=== PATIENT | female | born 1980 | race Caucasian/White ===

== ENCOUNTER 2018-08-19 23:39 | Emergency (ER) | payer OTHER ==
[2018-08-20 00:08] VITALS: RESP 20
[2018-08-20] MEDS ORDERED: diphenhydrAMINE 50 MG/ML 1 ML VIAL IVP STA (00:44)
[2018-08-20] MEDS ORDERED: METOCLOPRAMIDE 5 MG/ML 2 ML VIAL IVP STA (00:44)
[2018-08-20] MEDS ORDERED: KETOROLAC 30 MG/ML 1 ML VIAL IVP STA (00:44)
[2018-08-20] MEDS ORDERED: SODIUM CHLORIDE 0.9% 1,000 ML IV ONE (00:44)
[2018-08-20] MEDS: guaiFENesin-DM 600/30MG 1 EACH TAB.ER.12H PO STA ×2 (01:01→01:06)
--- NOTE | 2018-08-20 02:43 | ED ---
URI HPI - General Chief Complaint: Upper Respiratory Infection Stated Complaint: URI, Headache, body pain Time Seen by Provider: 08/20/18 00:27 Source: patient Mode of arrival: ambulatory Limitations: no limitations - History of Present Illness Initial Comments: 37-year-old female patient presents to the emergency department today for evaluation of upper respiratory symptoms and migraine headache. Patient states last 2 days she has been sick with nasal congestion, nasal drainage, and cough. Patient states she is having pressure in her ears with this as well. States that she has had temperature as high as 10 1F at home. States that earlier today she developed a migraine headache. Patient states that she does have a history of migraines her symptoms are consistent with her usual migraine pattern and include visual alterations, light and sound sensitivity, and nausea. Patient states she has had a couple episodes of vomiting today. Denies any abdominal pain, constipation, or diarrhea. Denies any numbness, tingling, weakness to his extremities. Patient denies any recent rash, shortness breath, chest pain, abdominal pain, back pain, numbness, tingling, dizziness, weakness, hematuria, dysuria, urinary urgency, urinary frequency, or any other complaints. - Related Data Previous Rx's Medication Instructions Recorded Hry-Kins-Wjsaq Acid 1 each PO DAILY #30 cap 05/26/15 [-U Capsule (formulary)] Albuterol Sulfate [Proair Hfa] 1 - 2 puff INHALATION Q6HR PRN #1 08/20/18 inhaler Azithromycin [Zithromax Z-pack] 0 mg PO DIRECTED #6 tab 08/20/18 guaiFENesin-DM 600/30MG [Mucinex 1 each PO Q12HR #10 tab.er.12h 08/20/18 Dm] Allergies Allergy/AdvReac Type Severity Reaction Status Date / Time aspirin Allergy Unknown Verified 07/03/15 22:46 Childhood celecoxib [From Celebrex] Allergy Unknown Verified 07/03/15 22:46 Penicillins Allergy Unknown Verified 07/03/15 22:46 Childhood sumatriptan [From Imitrex] Allergy Unknown Verified 07/03/15 22:46 sumatriptan succinate Allergy Unknown Verified 07/03/15 22:46 [From Imitrex] ibuprofen AdvReac Unknown Verified 07/03/15 22:46 Review of Systems ROS Statement: Those systems with pertinent positive or pertinent negative responses have been documented in the HPI. ROS Other: All systems not noted in ROS Statement are negative. Past Medical History Past Medical History: Asthma Additional Past Medical History / Comment(s): migraines, hypoglycemia History of Any Multi-Drug Resistant Organisms: None Reported Past Surgical History: Appendectomy Additional Past Surgical History / Comment(s): fallopian tube cyst removed per pt Past Psychological History: Anxiety, Bipolar, Depression, Panic Disorder Smoking Status: Current every day smoker Past Alcohol Use History: Rare Past Drug Use History: Marijuana General Exam Limitations: no limitations General appearance: alert, in no apparent distress, other (The well-developed, well-nourished adult female patient in no acute distress. Vital signs upon presentation are temperature 98.2F, pulse 117, respirations 20, blood pressure 121/85, pulse ox 98% on room air.) Eye exam: Present: normal appearance, PERRL, EOMI. Absent: scleral icterus, conjunctival injection, nystagmus, periorbital swelling ENT exam: Present: normal exam, normal oropharynx, mucous membranes moist, TM's normal bilaterally Respiratory exam: Present: normal lung sounds bilaterally. Absent: respiratory distress, wheezes, rales, rhonchi, stridor Cardiovascular Exam: Present: regular rate, normal rhythm, normal heart sounds. Absent: systolic murmur, diastolic murmur, rubs, gallop, clicks GI/Abdominal exam: Present: soft, normal bowel sounds. Absent: distended, tenderness, guarding, rebound, rigid Neurological exam: Present: alert, oriented X3, CN II-XII intact, other (Strength in all 4 cavities is 5/5.) Psychiatric exam: Present: normal affect, normal mood Skin exam: Present: warm, dry, intact, normal color. Absent: rash Course Vital Signs 08/20/18 08/20/18 00:04 03:21 Temperature 98.2 F 97.9 F Pulse Rate 117 H 81 Respiratory 20 20 Rate Blood Pressure 121/85 116/87 O2 Sat by Pulse 98 98 Oximetry Medical Decision Making - Medical Decision Making 37-year-old female patient presents to the emergency department today for evaluation of upper respiratory symptoms, cough, and migraine headache. Physical examination is unremarkable. Lungs are clear to auscultation with good air movement. Patient is neurologically intact with no focal deficits. She was influenza negative. Chest x-ray showed no acute cardio pulmonary process. Patient symptoms are consistent with viral upper respiratory infection. Patient was given prescription for azithromycin in case her symptoms do not start to improve over the next 3 days. She is also given a Pro Air inhaler she does have a history of asthma. She is given Mucinex DM for symptom relief. She is instructed to follow-up with her primary care physician for recheck in 1-2 days. Return parameters were discussed in detail. She verbalizes understanding and agrees with this plan. - Lab Data Lab Results 08/20/18 Range/Units 00:57 Influenza Type A RNA Not Detected (Not Detectd) Influenza Type B (PCR) Not Detected (Not Detectd) - Radiology Data Radiology results: report reviewed, image reviewed Two-view x-ray of the chest is obtained. Report was reviewed in its entirety. Impression by Dr. Quintanilla shows normal chest radiographs. Disposition Clinical Impression: Viral upper respiratory infection, Migraine Disposition: HOME SELF-CARE Condition: Good Instructions (If sedation given, give patient instructions): Migraine Headache (ED), Upper Respiratory Infection (ED) Additional Instructions: Increase fluids. Take medications as directed. Follow-up through primary care physician for recheck in 1-2 days. If symptoms do not start to improve in 3 days start the azithromycin/Z-Gene. Return to emergency department immediately for any new, worsening, or concerning symptoms. Prescriptions: guaiFENesin-DM 600/30MG [Mucinex Dm] 1 each PO Q12HR #10 tab.er.12h Albuterol Sulfate [Proair Hfa] 1 - 2 puff INHALATION Q6HR PRN #1 inhaler PRN Reason: Shortness Of Breath Azithromycin [Zithromax Z-pack] 0 mg PO DIRECTED #6 tab Is patient prescribed a controlled substance at d/c from ED?: No Referrals: None,Stated [Primary Care Provider] - 1-2 days Time of Disposition: 02:57
--- NOTE | 2018-08-20 02:48 | XR ---
EXAM: XR Chest, 2 Views CLINICAL HISTORY: Pain TECHNIQUE: Frontal and lateral views of the chest. COMPARISON: No relevant prior studies available. FINDINGS: Lungs: Unremarkable. No consolidation. Pleural space: No pleural effusion. No pneumothorax. Heart: Unremarkable. No cardiomegaly. Mediastinum: Unremarkable. Bones/joints: Unremarkable. IMPRESSION: Normal chest radiographs.
[2018-08-20 03:22] VITALS: BP 116/87; PULSE 81; TEMP 97.9
== END 2018-08-20 03:24 | disposition home or self-care (01) ==
LOC: EC 23:39
DX: J06.9 Acute upper respiratory infection, unspecified (principal); G43.909 Migraine, unspecified, not intractable, without status migrainosus; J45.909 Unspecified asthma, uncomplicated; F17.200 Nicotine dependence, unspecified, uncomplicated; Z88.0 Allergy status to penicillin; Z88.6 Allergy status to analgesic agent; Z88.8 Allergy status to other drugs, medicaments and biological substances; Z53.8 Procedure and treatment not carried out for other reasons
CPT/HCPCS: 87502; 71046; 99283; 96374; 96375; 96361 ×2; J1200; J2765

== ENCOUNTER 2019-07-31 17:00 | Emergency (ER) | payer OTHER ==
[2019-07-31 17:07] VITALS: BP 135/91; PULSE 84; RESP 18; TEMP 98.1
--- NOTE | 2019-07-31 17:29 | ED ---
ENT HPI - General Chief complaint: ENT Stated complaint: sorethroat Time Seen by Provider: 07/31/19 17:08 Source: patient Mode of arrival: ambulatory Limitations: no limitations - History of Present Illness Initial comments: Patient is a 38-year-old female with history of asthma presenting to emergency Department with chief complaint of a sore throat. Patient states symptoms began yesterday. Patient states she has an occasional cough but it is due to her smoking. Denies any fever and chills at home. Denies rhinorrhea or otalgia. Patient is concerned for strep throat. Denies swelling in the floor oral cavity or under the chin. Patient requesting albuterol inhaler and prednisone for when she develops asthma exacerbation. - Related Data Previous Rx's Medication Instructions Recorded Qpq-Yaon-Ozpre Acid 1 each PO DAILY #30 cap 05/26/15 [-U Capsule (formulary)] Albuterol Sulfate [Proair Hfa] 1 - 2 puff INHALATION Q6HR PRN #1 08/20/18 inhaler Azithromycin [Zithromax Z-pack] 0 mg PO DIRECTED #6 tab 08/20/18 guaiFENesin-DM 600/30MG [Mucinex 1 each PO Q12HR #10 tab.er.12h 08/20/18 Dm] Albuterol Inhaler [Ventolin Hfa 1 - 2 puff INHALATION RT-Q6H PRN 07/31/19 Inhaler] #1 inhaler predniSONE 50 mg PO DAILY #5 tab 07/31/19 Allergies Allergy/AdvReac Type Severity Reaction Status Date / Time aspirin Allergy Unknown Verified 07/31/19 17:07 Childhood celecoxib [From Celebrex] Allergy Unknown Verified 07/31/19 17:07 Penicillins Allergy Unknown Verified 07/31/19 17:07 Childhood sumatriptan [From Imitrex] Allergy Unknown Verified 07/31/19 17:07 sumatriptan succinate Allergy Unknown Verified 07/31/19 17:07 [From Imitrex] ibuprofen AdvReac Unknown Verified 07/31/19 17:07 Review of Systems ROS Statement: Those systems with pertinent positive or pertinent negative responses have been documented in the HPI. ROS Other: All systems not noted in ROS Statement are negative. Past Medical History Past Medical History: Asthma Additional Past Medical History / Comment(s): migraines, hypoglycemia History of Any Multi-Drug Resistant Organisms: None Reported Past Surgical History: Appendectomy Additional Past Surgical History / Comment(s): fallopian tube cyst removed per pt Past Psychological History: Anxiety, Bipolar, Depression, Panic Disorder Smoking Status: Current every day smoker Past Alcohol Use History: Rare Past Drug Use History: Marijuana General Exam Limitations: no limitations General appearance: alert, in no apparent distress Head exam: Present: atraumatic, normocephalic, normal inspection Eye exam: Present: normal appearance, PERRL, EOMI Pupils: Present: normal accommodation ENT exam: Present: normal exam, normal oropharynx (Uvula midline. No tonsillar erythema, enlargement or exudates.), mucous membranes moist, TM's normal bilaterally, normal external ear exam Neck exam: Present: normal inspection, full ROM. Absent: lymphadenopathy Respiratory exam: Present: normal lung sounds bilaterally. Absent: respiratory distress, wheezes Cardiovascular Exam: Present: regular rate, normal rhythm, normal heart sounds Extremities exam: Present: normal inspection, full ROM Back exam: Present: normal inspection, full ROM Neurological exam: Present: alert, oriented X3 Psychiatric exam: Present: normal affect, normal mood Skin exam: Present: warm, dry, intact, normal color Course Vital Signs 07/31/19 17:03 Temperature 98.1 F Pulse Rate 84 Respiratory 18 Rate Blood Pressure 135/91 O2 Sat by Pulse 99 Oximetry Medical Decision Making - Medical Decision Making Patient 38-year-old female with history of asthma presenting to the emergency department with a chief complaint of sore throat. Physical examination is unremarkable. Patient does not [facility] [place] criteria for strep pharyngitis. Patient advised to gargle salt water to help with the symptoms. Patient was giv en a prescription for albuterol and prednisone in case she develops acute asthma exacerbation. Patient does not have a primary. She was advised to obtain a primary care physician. Vitals are stable. Return parameters thoroughly discussed with patient was understanding and agreeable. Case discussed with physician. Disposition Clinical Impression: Pharyngitis Disposition: HOME SELF-CARE Condition: Stable Instructions (If sedation given, give patient instructions): Tonsillitis (ED) Additional Instructions: Take prescribed medication as directed. Gargle salt water. Follow-up with primary care. Return to emergency department if symptoms worsen. Stop smoking. Prescriptions: predniSONE 50 mg PO DAILY #5 tab Albuterol Inhaler [Ventolin Hfa Inhaler] 1 - 2 puff INHALATION RT-Q6H PRN #1 inhaler PRN Reason: Wheezing Is patient prescribed a controlled substance at d/c from ED?: No Referrals: None,Stated [Primary Care Provider] - 1-2 days Yanna Buckner MD [Medical Doctor] - 1-2 days Time of Disposition: 17:29
[2019-07-31] MEDS ORDERED: predniSONE 20 MG TAB PO STA (17:30)
[2019-07-31] MEDS ORDERED: FAMOTIDINE 20 MG TAB PO STA (17:30)
== END 2019-07-31 17:39 | disposition home or self-care (01) ==
LOC: EC 17:00
DX: J02.9 Acute pharyngitis, unspecified (principal); F17.200 Nicotine dependence, unspecified, uncomplicated; Z87.09 Personal history of other diseases of the respiratory system; Z88.6 Allergy status to analgesic agent; Z88.0 Allergy status to penicillin; Z88.8 Allergy status to other drugs, medicaments and biological substances
CPT/HCPCS: 99282; J7512

== ENCOUNTER → 2020-10-31 | Outpatient (CLI) | payer OTHER ==
--- NOTE | 2020-10-31 15:19 | XR ---
EXAMINATION TYPE: XR thoracic spine 2V DATE OF EXAM: 10/31/2020 CLINICAL HISTORY: Fall with mid back pain. TECHNIQUE: Frontal, lateral, and swimmer's view of thoracic spine are obtained. COMPARISON: None. FINDINGS: Thoracic spine show satisfactory alignment without evidence of acute fracture or dislocatio n. Vertebral body heights and disc space heights are preserved. Visualized ribs are unremarkable. IMPRESSION: No acute fracture or dislocation is seen in the thoracic spine.
--- NOTE | 2020-10-31 15:20 | XR ---
EXAMINATION TYPE: XR lumbosacral spine min 4V DATE OF EXAM: 10/31/2020 CLINICAL HISTORY: Worsening pain x2 weeks TECHNIQUE: Frontal, lateral, and oblique images of the lumbar spine are obtained. COMPARISON: None FINDINGS: There are 5 lumbar type vertebral bodies identified. The lumbar spine shows satisfactory alignment without evidence of acute fracture or dislocation. Vertebral body heights and disk space he ights are within normal limits. The oblique images appear within normal limits. The overlying soft tissue appears unremarkable. IMPRESSION: No acute fracture or dislocation is seen in the lumbar spine.
[2020-11-01 04:01] LABS: African American GFR (CKD) 127.4 (60.0-200.0); Albumin 4.7 g/dL (3.80-4.90); Albumin/Globulin Ratio 1.74 (1.60-3.17); Anion Gap 9.4 mmol/L (4.00-12.00); BUN/Creat Ratio 15.71 Ratio (12.00-20.00); Calcium 9.2 mg/dL (8.7-10.3); Carbon Dioxide 22.6 mmol/L (21.6-31.8); Globulin 2.7 g/dL (1.6-3.3); Magnesium 1.9 mg/dL (1.5-2.4); Non-African American GFR(CKD) 109.9 (60.0-200.0); Potassium 4.5 mmol/L (3.5-5.5); Total Bilirubin 0.2 mg/dL (0.2-1.2); Total Protein 7.4 g/dL (6.2-8.2)
== END | disposition home or self-care (01) ==
LOC: LABWHC1 14:25
PROVIDERS: ATTEND Nurse Practitioner Family
DX: M54.6 Pain in thoracic spine (principal); M54.5 Low back pain; R51.0 Headache with orthostatic component, not elsewhere classified
CPT/HCPCS: 36415; 72070; 72110; 80053; 83735

== ENCOUNTER → 2022-09-27 | Outpatient (CLI) | payer OTHER ==
--- NOTE | 2022-09-30 18:48 | MM ---
Reason for Exam: Screening (asymptomatic). Baseline mammogram. Patient History: Menarche at age 13. First Full-Term at age 22. Mother had breast cancer. Last menstrual period: 09/27/2022 Risk Values: Janina 5 year model risk: 1.2%. NCI Lifetime model risk: 19.9%. Prior Study Comparison: Patient's first Mammogram. No prior studies available for comparison. Tissue Density: The breast tissue is heterogeneously dense. This may lower the sensitivity of mammography. Findings: Analyzed By CAD. Areas of asymmetric density, for example, superiorly in both breasts on the MLO view is benign clearly persist on 3-D images. However, given patient's lifetime risk score and dense tissues, further assessment with ultrasound is recommended. Overall Assessment: Incomplete: need additional imaging evaluation, BI-RAD 0 Management: Diagnostic Breast Ultrasound of both breasts. Given dense tissues, lack of priors for comparison, and patient's increased lifetime risk score. [facility] will attempt to contact patient to return for supplemental views and ultrasound if indicated. Electronically signed and approved by: Adela Phan M.D. Radiologist
== END | disposition home or self-care (01) ==
LOC: RADMAMWWP 13:05
PROVIDERS: ATTEND Family Medicine
DX: Z12.31 Encounter for screening mammogram for malignant neoplasm of breast (principal); Z80.3 Family history of malignant neoplasm of breast
CPT/HCPCS: 77063; 77067

== ENCOUNTER → 2022-10-24 | Outpatient (CLI) | payer OTHER ==
--- NOTE | 2022-10-24 16:04 | USB ---
Reason for Exam: Additional evaluation requested from abnormal screening. Patient History: Menarche at age 13. First Full-Term at age 22. Mother had breast cancer. Risk Values: Janina 5 year model risk: 1.2%. NCI Lifetime model risk: 19.9%. Prior Study Comparison: 09/27/2022 Bilateral MG 3D screening mammo w/cad, [facility]. Findings: The whole breast of both breasts, the axilla of both breasts and the retroareolar of both breasts were scanned. Electronically signed and approved by: Sahil Murphy M.D. Radiologis
== END | disposition home or self-care (01) ==
LOC: RADUSWWP 14:58
PROVIDERS: ATTEND Family Medicine
DX: R92.8 Other abnormal and inconclusive findings on diagnostic imaging of breast (principal); Z80.3 Family history of malignant neoplasm of breast